=== PATIENT | female | born 1995 | race African-American/Black ===

== ENCOUNTER 2017-07-11 16:19 | Emergency (ER) | payer OTHER, SELFPAY ==
[2017-07-11] MEDS ORDERED: Naproxen 500 MG TAB ONE (16:43)
== END 2017-07-11 16:45 | disposition home or self-care (01) ==
LOC: NAV ERS 16:19
DX: G44.209 Tension-type headache, unspecified, not intractable (principal)
CPT/HCPCS: 99283

== ENCOUNTER 2019-01-09 10:45 | Emergency (ER) | payer BC | END 2019-01-09 12:20 | disposition home or self-care (01) | LOC: NAV ERS 10:45 | DX: K08.89 Other specified disorders of teeth and supporting structures (principal) | CPT/HCPCS: 99282 ==

== ENCOUNTER 2021-04-12 22:48 | Emergency (ER) | payer BC ==
[2021-04-12] MEDS ORDERED: predniSONE 20 MG TAB ONE (23:09)
== END 2021-04-12 23:12 | disposition home or self-care (01) ==
LOC: NAV ERS 22:48
DX: L50.8 Other urticaria (principal)
CPT/HCPCS: 99282; J7512

== ENCOUNTER 2021-05-10 08:46 | Emergency (ER) | payer BC ==
[2021-05-10] MEDS ORDERED: diphenhydrAMINE 25 MG CAP ONE (09:55)
[2021-05-10] MEDS ORDERED: predniSONE 20 MG TAB ONE (09:55)
== END 2021-05-10 10:15 | disposition home or self-care (01) ==
LOC: NAV ERS 08:46
DX: L50.9 Urticaria, unspecified (principal)
CPT/HCPCS: 99283; J7512

== ENCOUNTER 2023-03-08 13:05 | Emergency (ER) | payer BC | END 2023-03-08 13:35 | disposition home or self-care (01) | LOC: NAV ERS 13:05 | DX: O36.8120 Decreased fetal movements, second trimester, not applicable or unspecified (principal); Z3A.26 26 weeks gestation of pregnancy ==

== ENCOUNTER 2024-01-31 14:37 | Emergency (ER) | payer BC ==
[2024-01-31] MEDS ORDERED: Ipratropium/Albuterol 3 ML NEB ONE (15:10)
[2024-01-31 16:09] LABS: Bilirubin Negative (Negative); Blood, Urine Negative (Negative); Clarity Clear (Clear); Glucose, Urine (Dipstick) Negative (Negative); Ketone, Urine Negative (Negative); Leukocyte Negative (Negative); Nitrite Negative (Negative); Protein, Urine (Dipstick) Negative (Neg-Trace); Urobilinogen 0.2 mg/dL (Less than 2)
[2024-01-31 16:11] LABS: Pregnancy Test - Urine (BHCG) Negative (Negative)
[2024-01-31 16:12] LABS: Pregu Control Background? CLEAR/WHITE (CLR/WHITE); Pregu Control Bar Appear? YES (CONTROL BAR)
[2024-01-31 16:15] LABS: Urine Culture Reflex No No
[2024-01-31 16:16] LABS: Bacteria/HPF Rare-Few HPF (None Seen); CAUTI Indications for Culture Pregnancy; RBC/HPF None Seen HPF (0-3); Squamous Epithelial 0-3 HPF (0-3); WBC/HPF 0-3 HPF (0-3); Yeast-Budding Rare HPF (None Seen)
[2024-01-31 16:17] LABS: Urine Culture Reflex Yes Yes
== END 2024-01-31 16:45 | disposition home or self-care (01) ==
LOC: NAV ERS 14:37
DX: J20.8 Acute bronchitis due to other specified organisms (principal)
CPT/HCPCS: 71046; 81001; 81025; 87070; 87086; 87205; J7620